=== PATIENT | female | born 1980 | race Two or more races ===

== ENCOUNTER 2017-02-27 15:17 | Observation (INO) | payer MEDICAID, OTHER ==
[~2017-02-27] VITALS: Ht 162.6 cm; Wt 81.6 kg
[2017-02-27] MEDS ORDERED: IRON-1 PO (15:32)
[2017-02-27] MEDS ORDERED: PREN-88 PO (15:32)
[2017-02-27] MEDS ORDERED: ONDANSETRON HCL 4MG/2ML VIAL IV ONE (15:45)
[2017-02-27 16:16] LABS: BASOPHILS % 0.2 % (0.0-2.0); EOSINOPHILS % 1.4 % (0.0-5.0); HEMATOCRIT. 34.1 % (36.0-48.0); HEMOGLOBIN. 11.7 g/dL (12.0-16.0); LYMPHOCYTES % 19.6 % (20.0-50.0); MEAN CORPUSCULAR HEMOGLOBIN 28.8 pg (28.0-32.0); MEAN CORPUSCULAR VOLUME 83.6 fL (81.0-99.0); MEAN PLATELET VOLUME 9.9 fl (7.4-10.4); NEUTROPHILS % 73.8 % (40.0-76.0); PLATELET 191 x1000/uL (130-400); RED BLOOD CELL COUNT 4.07 mill/uL (4.2-5.4); RED CELL DISTRIBUTION WIDTH 13.4 % (11.6-14.6)
[2017-02-27 16:24] LABS: PROTHROMBIN TIME 10.6 sec
== END 2017-02-27 19:00 | disposition home or self-care (01) ==
LOC: L&D 15:17
PROVIDERS: ADMIT Obstetrics & Gynecology; ATTEND Obstetrics & Gynecology
DX: O26.892 Other specified pregnancy related conditions, second trimester (principal); R10.31 Right lower quadrant pain; V49.9XXA Car occupant (driver) (passenger) injured in unspecified traffic accident, initial encounter; Y93.89 Activity, other specified; Y92.89 Other specified places as the place of occurrence of the external cause; Y99.8 Other external cause status; Z3A.25 25 weeks gestation of pregnancy
CPT/HCPCS: 36415; 76805; 85025; 85460; 85610; 85730; 96374; 99281; G0378; J2405